=== PATIENT | male | born 1990 ===

== ENCOUNTER 2018-02-04 10:33 | Emergency (ER) | payer SELFPAY ==
[2018-02-04 10:43] VITALS: BP 137/76; PULSE 56; RESP 20; TEMP 98; O2SAT 98
[2018-02-04] MEDS ORDERED: Ofloxacin 0.3% Otic Soln AS STA (10:56)
--- NOTE | 2018-02-04 10:59 | C.PDOC ---
History Of Present Illness 27 year old male presents to the ED c/o left ear pain one week, feels clogged for the past week. Patient denies injury, fall, trauma, fever, drainage, foreign body sensation. left ear tragus tender, canal edema and exudates, TM mild erythema Time Seen by Provider: 02/04/18 10:37 Chief Complaint (Nursing): ENT Problem History Per: Patient History/Exam Limitations: None Onset/Duration Of Symptoms: Days Current Symptoms Are (Timing): Still Present Quality (Ear): Pain W/Touch Anticoagulant/Antiplatlet Use?: No Recent Aspirin Use: No Past Medical History Reviewed: Historical Data, Nursing Documentation, Vital Signs Vital Signs: Last Vital Signs Temp 98.0 F 02/04/18 10:40 Pulse 56 L 02/04/18 10:40 Resp 20 02/04/18 10:40 BP 137/76 02/04/18 10:40 Pulse Ox 98 02/04/18 10:59 - Medical History PMH: No Chronic Diseases Surgical History: No Surg Hx Family History: States: Unknown Family Hx - Social History Hx Alcohol Use: Yes Hx Substance Use: No - Immunization History Hx Tetanus Toxoid Vaccination: No Hx Influenza Vaccination: No Hx Pneumococcal Vaccination: No Review Of Systems Constitutional: Negative for: Fever, Chills ENT: Positive for: Ear Pain. Negative for: Nose Discharge, Nose Congestion Respiratory: Negative for: Cough Gastrointestinal: Negative for: Nausea, Vomiting Skin: Negative for: Rash Neurological: Negative for: Headache Physical Exam - Physical Exam Appears: Non-toxic, No Acute Distress Skin: Normal Color, Warm, Dry Head: Atraumatic, Normacephalic Eye(s): bilateral: Normal Inspection Ear(s): Left: TM Erythema (mild), Other (tragus tenderness, canal edma and exudates), Right: Normal Nose: No Discharge Oral Mucosa: Moist Throat: Normal, No Erythema, No Exudate Neck: Normal ROM, Supple Extremity: Normal ROM Neurological/Psych: Oriented x3, Normal Speech Gait: Steady ED Course And Treatment O2 Sat by Pulse Oximetry: 98 (ON RA) Pulse Ox Interpretation: Normal Medical Decision Making Medical Decision Making: Impression: left ear pain Plan: * Floxin 1 ml Disposition Counseled Patient/Family Regarding: Diagnosis, Need For Followup, Rx Given - Disposition Referrals: Tolu Alvarez MD [Staff Provider] - [facility] [Outside] [facility]] Disposition: HOME/ ROUTINE Disposition Time: 10:59 Condition: GOOD Additional Instructions: Instill 1-2 drops in affected ear 2 times a day for one week Follow up with ENT if symptoms persist Instilar 1-2 gotas en el odo afectado 2 veces al da anne luz maria semana Ortega un seguimiento con ENT si los sntomas persisten Regrese al departamento de emergencia en cualquier momento si los sntomas persisten o empeoran. Prescriptions: Ofloxacin Otic 0.3% [Floxin 0.3% Otic Soln] 1 drop BID #1 bottle Instructions: Outer Ear Infection (DC) Print Language: MOHAWK - POA Present On Arrival: None - Clinical Impression Clinical Impression: Otitis externa - PA / [employer] / Resident Statement MD/ has reviewed & agrees with the documentation as recorded. - Scribe Statement The provider has reviewed the documentation as recorded by the Scribe Elfego Peterson All medical record entries made by the Scribe were at my direction and personally dictated by me. I have reviewed the chart and agree that the record accurately reflects my personal performance of the history, physical exam, medical decision making, and the department course for this patient. I have also personally directed, reviewed, and agree with the discharge instructions and disposition.
== END 2018-02-04 11:30 | disposition home or self-care (01) ==
LOC: C.ER 10:33
DX: H60.92 Unspecified otitis externa, left ear (principal)